=== PATIENT | male | born 1970 | race Caucasian/White ===

== ENCOUNTER → 2019-09-10 09:36 | Outpatient (BNVA) | payer SELFPAY | PROVIDERS: Visit Provider Nurse Practitioner Family | DX: Z00.00 Encounter for general adult medical examination without abnormal findings (principal); Z71.3 Dietary counseling and surveillance; Z71.82 Exercise counseling; Z68.28 Body mass index [BMI] 28.0-28.9, adult; Z78.9 Other specified health status | CPT/HCPCS: 82465 ==